=== PATIENT | male | born 2000 | race Caucasian/White ===

== ENCOUNTER 2022-12-09 21:46 | Emergency (ER) | payer SELFPAY ==
[2022-12-09] MEDS ORDERED: Sodium Chloride 0.9% 1,000 ML IV SCH (23:00)
[2022-12-10 02:36] LABS: BASOPHILS ABSOLUTE AUTO 0.01 K/mm3 (0.01-0.08); BASOPHILS PERCENT AUTO 0.1 % (0.1-1.2); EOSINOPHILS ABSOLUTE AUTO 0.06 K/mm3 (0.04-0.54); EOSINOPHILS PERCENT AUTO 0.6 (0.8-7.0); HEMATOCRIT 42.7 % (40.1-51.0); HEMOGLOBIN 14.9 gm/dl (13.7-17.5); IMMATURE GRAN ABSOLUTE AUTO 0.01 K/mm3 (0.00-0.10); IMMATURE GRAN PERCENT AUTO 0.1 % (<=1.0); LYMPHOCYTES ABSOLUTE AUTO 1.88 K/mm3 (1.32-3.57); LYMPHOCYTES PERCENT AUTO 20.3 % (21.8-53.1); MEAN CORPUSCULAR HEMOGLOBIN 29.2 pg (25.7-32.2); MEAN CORPUSCULAR HGB CONC 34.9 g/dl (32.2-35.5); MEAN CORPUSCULAR VOLUME 83.6 fl (79.0-92.2); MEAN PLATELET VOLUME 10.3 fl (9.4-12.3); MONOCYTES ABSOLUTE AUTO 0.65 K/mm3 (0.30-0.82); NEUTROPHILS ABSOLUTE AUTO 6.63 K/mm3 (1.78-5.38); NEUTROPHILS PERCENT AUTO 71.9 % (34.0-67.9); PLATELET COUNT,PLT 267 K/mm3 (163-337); RED BLOOD CELL COUNT 5.11 M/mm3 (4.63-6.08); WHITE BLOOD CELL COUNT,WBC 9.24 K/mm3 (4.23-9.07)
[2022-12-10 02:57] LABS: A/G RATIO 1.1 (1-2); ALBUMIN 3.9 g/dl (3.4-5.0); ANION GAP 15.7 (5-15); BILIRUBIN TOTAL 0.4 mg/dL (0.2-1.0); BUN/CREATININE RATIO 16.3 (14-18); CALCIUM 8.2 mg/dL (8.5-10.1); CREATININE 0.8 mg/dL (0.7-1.3); EST CRCL DRUG DOSING (CG) 150.82 mL/min; ETHANOL BLOOD MEDICAL 0.13 gm% (0.00); POTASSIUM,K 3.7 mEq/L (3.5-5.1); PROTEIN TOTAL,TP 7.5 g/dl (6.4-8.2)
[2022-12-10 04:12] LABS: BARBITURATE SCREEN,URINE NEGATIVE (CUTOFF=200); BENZODIAZEPINES SCREEN,URINE NEGATIVE (CUTOFF=150); BUPRENORPHINE SCREEN,URINE NEGATIVE (CUTOFF=10); METHADONE SCREEN, URINE NEGATIVE (CUT0FF=200); METHAMPHETAMINES SCREEN, URINE NEGATIVE (CUTOFF=500); OXYCODONE SCREEN,URINE NEGATIVE (CUT0FF=100); PROPOXYPHENE SCREEN,URINE NEGATIVE (CUTOFF=300); THC SCREEN,URINE 20 NG/ML NEGATIVE (CUTOFF=50)
[2022-12-10 04:15] LABS: AMPHETAMINES SCREEN, URINE NEGATIVE (CUTOFF=500)
== END 2022-12-10 04:20 | disposition home or self-care (01) ==
LOC: JD.ED 21:46
DX: S00.211A Abrasion of right eyelid and periocular area, initial encounter (principal); F10.129 Alcohol abuse with intoxication, unspecified; Z86.16 Personal history of COVID-19; Y90.0 Blood alcohol level of less than 20 mg/100 ml; W18.30XA Fall on same level, unspecified, initial encounter
CPT/HCPCS: 36415; 70450; 72125; 80053; 80306; 80307; 85025; 96360; 96361; 99284; J7030; 99283